=== PATIENT | female | born 1980 | race Caucasian/White ===

== ENCOUNTER 2016-11-07 20:02 | Emergency (ER) | payer BC ==
[2016-11-07 20:31] VITALS: BP 110/71
--- NOTE | 2016-11-07 21:00 | UC ---
Throat Pain/Nasal Curt HPI - HPI Summary HPI Summary: FOUR DAYS OF SORE THROAT, FACIAL PRESSURE EAR PRESSURE, CHEST CONGESTION. NO FEVER. NO BODY ACHES. NO N/V. NO ABDOMINAL PAIN. - History of Current Complaint Stated Complaint: SINUS COMPLAINT Time Seen by Provider: 11/07/16 20:17 Hx Obtained From: Patient Hx Last Menstrual Period: 10/25/16 Onset/Duration: Gradual Onset, Lasting Days, Still Present Severity: Moderate Pain Intensity: 8 Pain Scale Used: 0-10 Numeric Cough: Nonproductive Associated Signs & Symptoms: Positive: Hoarseness, Sinus Discomfort, Nasal Discharge - Epiglottits Risk Factors Epiglottis Risk Factors: Negative - Allergies/Home Medications Allergies/Adverse Reactions: Allergies Allergy/AdvReac Type Severity Reaction Status Date / Time Sulfamethoxazole Allergy Rash Verified 11/07/16 20:27 w/Trimethoprim [From Bactrim] Home Medications: Home Medications Loratadine [Claritin 10 MG CAP] 10 mg PO DAILY 11/07/16 [History Confirmed 11/07] PMH/Surg Hx/FS Hx/Imm Hx Previously Healthy: Yes - Surgical History Surgical History: Yes Surgery Procedure, Year, and Place: - Family History Known Family History: Positive: None, Cardiac Disease - Social History Occupation: Employed Full-time Lives: With Family Alcohol Use: Occasionally Substance Use Type: None Smoking Status (MU): Former Smoker When Did the Patient Quit Smoking/Using Tobacco: 2004 Review of Systems Constitutional: Fatigue Skin: Negative Eyes: Negative ENT: Sore Throat, Ear Ache, Nasal Discharge Respiratory: Cough Cardiovascular: Negative Gastrointestinal: Negative Genitourinary: Negative Motor: Negative Neurovascular: Negative Musculoskeletal: Negative Neurological: Negative Psychological: Negative All Other Systems Reviewed And Are Negative: Yes Physical Exam Triage Information Reviewed: Yes Appearance: No Pain Distress, Well-Nourished, Ill-Appearing - MILDLY Vital Signs: Initial Vital Signs Temp 98.4 F 11/07/16 20:28 Pulse 69 11/07/16 20:28 Resp 16 11/07/16 20:28 BP 110/71 11/07/16 20:28 Pulse Ox 100 11/07/16 20:28 Vital Signs Reviewed: Yes Eye Exam: Normal ENT: Positive: Hearing grossly normal, Pharynx normal, TM bulging, TM dull Dental Exam: Normal Neck exam: Normal Neck: Positive: Supple, Nontender, No Lymphadenopathy Respiratory Exam: Normal Respiratory: Positive: Chest non-tender, Lungs clear, Normal breath sounds, No respiratory distress, No accessory muscle use Cardiovascular Exam: Normal Cardiovascular: Positive: RRR, No Murmur Abdominal Exam: Normal Abdomen Description: Positive: Nontender, No Organomegaly Musculoskeletal Exam: Normal Musculoskeletal: Positive: Strength Intact, ROM Intact Neurological Exam: Normal Psychological Exam: Normal Skin Exam: Normal Throat Pain/Nasal Course/Dx - Differential Dx/Diagnosis Differential Diagnosis/HQI/PQRI: Pharyngitis, Sinusitis, Tonsillitis, URI Provider Diagnoses: SINUSITIS Discharge - Discharge Plan Condition: Stable Disposition: HOME Prescriptions: Amoxicillin/Clavulanate TAB* [Augmentin TAB 875*] 875 mg PO BID #20 tab Patient Education Materials: Sinusitis (ED) Referrals: Non Staff,Doctor [Primary Care Provider] -
== END 2016-11-07 20:36 | disposition home or self-care (01) ==
LOC: UCCORT 20:02
DX: J01.90 Acute sinusitis, unspecified (principal); B96.89 Other specified bacterial agents as the cause of diseases classified elsewhere
CPT/HCPCS: 99212; G0463

== ENCOUNTER 2017-07-23 14:48 | Emergency (ER) | payer BC ==
[2017-07-23 18:33] VITALS: BP 106/62
--- NOTE | 2017-07-23 18:49 | ED ---
Throat Pain/Nasal Congestion - HPI Summary HPI Summary: 36 yr old female with the complaint of sinus pressure, post nasal drip, sore throat, coughing and myalgias. She feels she may have a sinus infection as she has gotten them before, and the discomfort/pressure in her frontal and maxillary sinuses is worse if she leans forward. Denies CP, sob. The onset of her symptoms were 07/20/17. This is her fourth day of symptoms. Symptoms not severe. - History of Current Complaint Chief Complaint: UCGeneralIllness Time Seen by Provider: 07/23/17 18:34 - Allergies/Home Medications Allergies/Adverse Reactions: Allergies Allergy/AdvReac Type Severity Reaction Status Date / Time MS Sulfamethoxazole Allergy Rash Verified 07/23/17 18:33 w/Trimethoprim [From Bactrim] Home Medications: Home Medications Vitamin TAB* 1 tab PO DAILY 07/23/17 [History Confirmed 07/23/17] PMH/Surg Hx/FS Hx/Imm Hx - Surgical History Surgery Procedure, Year, and Place: Infectious Disease History: No Infectious Disease History: Denies: Traveled Outside the [place] in Last 30 Days - Family History Known Family History: Positive: None, Cardiac Disease - Social History Occupation: Employed Full-time Lives: With Family Alcohol Use: None Substance Use Type: Reports: None Smoking Status (MU): Former Smoker Review of Systems Positive: Chills Positive: Sore Throat, Nasal Discharge, Other - sinus pressure Positive: Cough Positive: Nausea Positive: Myalgia Positive: Headache All Other Systems Reviewed And Are Negative: Yes Physical Exam Triage Information Reviewed: Yes Vital Signs On Initial Exam: Initial Vitals Temp Pulse Resp BP Pulse Ox 99.7 F 84 16 106/62 100 07/23/17 18:28 07/23/17 18:28 07/23/17 18:28 07/23/17 18:28 07/23/17 18:28 Vital Signs Reviewed: Yes Appearance: Positive: Well-Appearing, No Pain Distress Skin: Positive: Warm, Skin Color Reflects Adequate Perfusion Head/Face: Positive: Normal Head/Face Inspection Eyes: Positive: EOMI ENT: Positive: Pharyngeal erythema, Nasal congestion, TMs normal, Sinus tenderness Neck: Positive: Supple, Nontender Respiratory/Lung Sounds: Positive: Clear to Auscultation, Breath Sounds Present Cardiovascular: Positive: RRR. Negative: Murmur Abdomen Description: Positive: Other: - gravid Musculoskeletal: Positive: Strength/ROM Intact Neurological: Positive: Sensory/Motor Intact, Alert, Oriented to Person Place, Time, CN Intact II-III Psychiatric: Positive: Normal - [place] Coma Scale Best Eye Response: 4 - Spontaneous Best Motor Response: 6 - Obeys Commands Best Verbal Response: 5 - Oriented Coma Scale Total: 15 Diagnostics - Vital Signs Vital Signs Temp Pulse Resp BP Pulse Ox 07/23/17 18:28 99.7 F 84 16 106/62 100 - Laboratory Lab Statement: Any lab studies that have been ordered have been reviewed, and results considered in the medical decision making process. EENT Course/Dx - Course Course Of Treatment: 36 yr old with sinus congestion, and positive flu. She has been ill for four days, and does not appear toxic or very sick. She does not want the tamiflu script at this point given the 4 days, and also it is category C. She wants to call her [employer]EL[employer] tomorrow for follow up. - Diagnoses Provider Diagnoses: Influenza Discharge - Discharge Plan Condition: Good Disposition: HOME Patient Education Materials: Influenza (ED) Forms: *Work Release Referrals: No Primary Care Phys,NOPCP [Primary Care Provider] - Jey Miller-MD Christine [Medical Doctor] - 1 Day
== END 2017-07-23 19:42 | disposition home or self-care (01) ==
LOC: UCCORT 14:48
DX: J11.1 Influenza due to unidentified influenza virus with other respiratory manifestations (principal); Z87.891 Personal history of nicotine dependence
CPT/HCPCS: 87502; 99211; G0463

== ENCOUNTER 2018-06-27 15:49 | Emergency (ER) | payer BC ==
[2018-06-27 17:01] VITALS: BP 110/60
--- NOTE | 2018-06-27 17:36 | UC ---
Throat Pain/Nasal Curt HPI - HPI Summary HPI Summary: Pt presents with c/o nasal congestion, sinus pressure and pain that is worsening over the last 4 days. Pt is 7 months and states she is not getting much sleep and is feeling worse daily. Has hx of sinusitis - History of Current Complaint Chief Complaint: UCGeneralIllness Stated Complaint: COUGH,CONGESTION,SINUS,EAR COMPLAINT Time Seen by Provider: 06/27/18 17:32 Hx Obtained From: Patient Hx Last Menstrual Period: unknown, ?: No Onset/Duration: Gradual Onset, Lasting Days, Still Present, Worse Since - onset Severity: Moderate Pain Intensity: 7 Cough: None Associated Signs & Symptoms: Positive: Sinus Discomfort, Nasal Discharge - Epiglottits Risk Factors Epiglottis Risk Factors: Negative - Allergies/Home Medications Allergies/Adverse Reactions: Allergies Allergy/AdvReac Type Severity Reaction Status Date / Time sulfamethoxazole Allergy Rash Verified 06/27/18 16:57 [From Bactrim] trimethoprim [From Bactrim] Allergy Rash Verified 06/27/18 16:57 Home Medications: Home Medications Guaifenesin/Pseudoephedrne HCl [Mucinex D ER Tablet] 1 each PO BID 06/27/18 [ History Confirmed 06/27/18] PMH/Surg Hx/FS Hx/Imm Hx Previously Healthy: Yes - Surgical History Surgical History: Yes Surgery Procedure, Year, and Place: x 3 - Family History Known Family History: Positive: Cardiac Disease - Social History Occupation: Employed Full-time Lives: With Family Alcohol Use: None Substance Use Type: None Smoking Status (MU): Former Smoker Have You Smoked in the Last Year: No When Did the Patient Quit Smoking/Using Tobacco: 2004 Review of Systems All Other Systems Reviewed And Are Negative: Yes Constitutional: Positive: Chills, Fatigue Skin: Positive: Negative Eyes: Positive: Negative ENT: Positive: Sore Throat, Sinus Congestion, Sinus Pain/Tenderness Respiratory: Positive: Negative Cardiovascular: Positive: Negative Gastrointestinal: Positive: Negative Genitourinary: Positive: Negative Motor: Positive: Negative Neurovascular: Positive: Negative Musculoskeletal: Positive: Myalgia Neurological: Positive: Headache Psychological: Positive: Negative Is Patient Immunocompromised?: No Physical Exam Triage Information Reviewed: Yes Appearance: Ill-Appearing Vital Signs: Initial Vital Signs Temp 98.1 F 06/27/18 16:56 Pulse 64 06/27/18 16:56 Resp 16 06/27/18 16:56 BP 110/60 06/27/18 16:56 Pulse Ox 100 06/27/18 16:56 Vital Signs Reviewed: Yes Eye Exam: Normal ENT: Positive: Nasal congestion, Sinus tenderness Dental Exam: Normal Neck exam: Normal Respiratory Exam: Normal Cardiovascular Exam: Normal Musculoskeletal Exam: Normal Neurological Exam: Normal Psychological Exam: Normal Skin Exam: Normal Throat Pain/Nasal Course/Dx - Differential Dx/Diagnosis Differential Diagnosis/HQI/PQRI: Pharyngitis, Sinusitis, URI Provider Diagnosis: Sinusitis Discharge - Sign-Out/Discharge Documenting (check all that apply): Patient Departure All imaging exams completed and their final reports reviewed: No Studies - Discharge Plan Condition: Stable Disposition: HOME Prescriptions: Amoxicillin PO (*) [Amoxicillin 875 MG (*)] 875 mg PO Q12H #20 tab Patient Education Materials: Sinusitis (ED) Referrals: Adrianna Kuo MD [Primary Care Provider] - If Needed - Billing Disposition and Condition Condition: STABLE Disposition: Home
== END 2018-06-27 18:04 | disposition home or self-care (01) ==
LOC: UCCORT 15:49
DX: J32.9 Chronic sinusitis, unspecified (principal); Z88.1 Allergy status to other antibiotic agents; Z87.891 Personal history of nicotine dependence
CPT/HCPCS: 99212; G0463

== ENCOUNTER 2018-11-08 17:11 | Emergency (ER) | payer BC ==
[2018-11-08 18:59] VITALS: BP 100/64
--- NOTE | 2018-11-08 19:27 | UC ---
General HPI - HPI Summary HPI Summary: PER TRIAGE, Had sore throat for awhile. Particularly bad the last couple of days. Both and son recently dx with strep. A lot of body aches, feels tired, and sinus congestion. She thought it was allergies but continues to worsen. sore throat x 7 days. - History of Current Complaint Chief Complaint: UCGeneralIllness Stated Complaint: SORE THROAT, BODY ACHES Time Seen by Provider: 11/08/18 18:59 Hx Obtained From: Patient Hx Last Menstrual Period: November 03 Onset/Duration: Gradual Onset Timing: Constant Pain Intensity: 7 - Allergy/Home Medications Allergies/Adverse Reactions: Allergies Allergy/AdvReac Type Severity Reaction Status Date / Time sulfamethoxazole Allergy Rash Verified 11/08/18 18:59 [From Bactrim] trimethoprim [From Bactrim] Allergy Rash Verified 11/08/18 18:59 Home Medications: Home Medications Clarithromycin TAB* [Biaxin 250 MG TAB*] 250 mg PO BID 11/08/18 [History Confirmed 11/08/18] Vit37/Iron/Folic Acid [[place]] 1 chw PO DAILY 11/08/18 [History Confirmed 11/08/18] PMH/Surg Hx/FS Hx/Imm Hx Previously Healthy: Yes - Surgical History Surgical History: Yes Surgery Procedure, Year, and Place: x 3 - Family History Known Family History: Positive: None, Cardiac Disease - Social History Lives: With Family Alcohol Use: Rare Substance Use Type: None Smoking Status (MU): Former Smoker Have You Smoked in the Last Year: No When Did the Patient Quit Smoking/Using Tobacco: 2004 Review of Systems All Other Systems Reviewed And Are Negative: Yes Physical Exam Triage Information Reviewed: Yes Appearance: Well-Appearing Vital Signs: Initial Vital Signs Temp 97.9 F 11/08/18 18:54 Pulse 71 11/08/18 18:54 Resp 16 11/08/18 18:54 BP 100/64 11/08/18 18:54 Pulse Ox 100 11/08/18 18:54 Vital Signs Reviewed: Yes Eyes: Positive: Conjunctiva Clear ENT: Positive: Pharyngeal erythema, TMs normal, Uvula midline. Negative: Nasal congestion, Nasal drainage, Trismus, Muffled voice, Hoarse voice Neck: Positive: Supple, Nontender, Enlarged Nodes @ - peritonsilar Respiratory: Positive: Lungs clear, Normal breath sounds Cardiovascular: Positive: RRR Abdomen Description: Positive: Nontender Musculoskeletal: Positive: ROM Intact Neurological: Positive: Alert Psychological: Positive: Age Appropriate Behavior Skin Exam: Normal Diagnostics - Laboratory Lab Results: rapid strep=positive, Course/Dx - Diagnoses Provider Diagnosis: Strep pharyngitis Discharge - Sign-Out/Discharge Documenting (check all that apply): Patient Departure All imaging exams completed and their final reports reviewed: No Studies - Discharge Plan Condition: Stable Disposition: HOME Prescriptions: Amoxicillin PO (*) [Amoxicillin 500 MG CAP*] 500 mg PO Q12H 10 Days #20 cap Patient Education Materials: Strep Throat (DC) Referrals: Adrianna Kuo MD [Primary Care Provider] - Additional Instructions: FOLLOW UP IF NOT BETTER IN 5 DAYS OR SOONER IF WORSE. - Billing Disposition and Condition Condition: STABLE Disposition: Home
== END 2018-11-08 19:46 | disposition home or self-care (01) ==
LOC: UCCORT 17:11
DX: J02.0 Streptococcal pharyngitis (principal); Z88.2 Allergy status to sulfonamides; Z87.891 Personal history of nicotine dependence
CPT/HCPCS: 87651; 99212; G0463

== ENCOUNTER 2019-09-13 10:45 | Emergency (ER) | payer BC | END 2019-09-13 11:15 | disposition home or self-care (01) | LOC: UCCORT 10:45 | DX: J32.9 Chronic sinusitis, unspecified (principal) | CPT/HCPCS: 99212; G0463 ==